=== PATIENT | female | born 2005 | race Caucasian/White ===

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

== ENCOUNTER 2024-07-14 23:34 | Emergency (ER) | payer OTHER, SELFPAY ==
[2024-07-14 23:37] VITALS: BP 113/81; PULSE 103; RESP 20; TEMP 37; O2SAT 99; BMI 16.9
[2024-07-14] MEDS: ALBUTEROL HFA PREPACK 1 BOX MISC (23:55)
[2024-07-14] MEDS: predniSONE 20 MG TABLET PO (23:55)
== END 2024-07-15 00:42 | disposition left against medical advice (07) ==
PROVIDERS: Emergency Provider Emergency Medicine; Family Provider Physician Assistant; PCP Registered Nurse Diabetes Educator
DX: R06.02 Shortness of breath (principal)
CPT/HCPCS: 81025; 99283

== ENCOUNTER → 2025-02-03 12:18 | Outpatient (CLI) | payer OTHER, SELFPAY ==
--- NOTE | 2025-02-03 12:19 | DI.US.S_ITS ---
US breast LT limited: 02/03/2025. BI-RADS: 3 CLINICAL: 20-year old female for left diagnostic breast ultrasound. Tyrer- Cuzick lifetime risk of 26.8%. No personal or first-degree family history of breast cancer. Current reported family history of breast cancer: maternal grandmother and paternal grandmother. The patient reports a palpable abnormality (1 month) and pain (1 month) in the left breast. PRIOR EXAMS No prior examinations available. ULTRASOUND TECHNIQUE Real-time andersen scale and color doppler imaging of the area of clinical interest was performed with image documentation. Left targeted breast ultrasound of the area of clinical interest and the axilla was performed with image documentation. ULTRASOUND FINDINGS Left: Upper Inner at 11:00, 5 cm from nipple, measuring 1.8 x 1.9 x 1.3 cm: Correlating with palpable lump and pain/tenderness there is an oval, circumscribed, hypoechoic mass that is parallel showing posterior acoustic enhancement. This is likely a fibroadenoma. Doppler shows mild internal vascularity. Left: Upper Inner at 10:00, 5 cm from nipple, measuring 1.3 x 0.9 x 0.5 cm: There are clustered microcysts. Doppler shows no vascularity. This is an incidental finding. Left: Upper Outer at 1:00, 5 cm from nipple: There is no sonographic abnormality to account for clinicians' concern of a palpable lump. Left: Axilla: No abnormal lymph nodes are seen in the axilla. IMPRESSION: Left (Mass): Upper Inner at 11:00, 5 cm from nipple, measuring 1.8 x 1.9 x 1.3 cm * Probably Benign. RECOMMENDATIONS Left: Upper Inner at 11:00, 5 cm from nipple * Six month followup with diagnostic ultrasound (The patient may return sooner for imaging if there is development of any clinically suspicious findings in the interim). Left: Upper Outer at 1:00, 5 cm from nipple * Clinical follow-up is recommended, and further management of palpable abnormalities or other focal signs or symptoms should be based on the results of clinical evaluation. If palpable abnormality or other concerning symptom persists or progresses, further clinical evaluation should be considered. COMMENTS: Findings and recommendations were conveyed to the patient during today's evaluation. OVERALL ASSESSMENT CATEGORY BI-RADS-3: Probably Benign. ELECTRONICALLY SIGNED: Leora Callahan M.D. on 02/03/2025 at 05:32:35 PM PT Interpreting Station ID: [id number]
== END ==
LOC: US 12:18
PROVIDERS: PCP Registered Nurse Diabetes Educator; Referring Provider Physician Assistant; Visit Provider Physician Assistant
DX: N63.22 Unspecified lump in the left breast, upper inner quadrant (principal); Z80.3 Family history of malignant neoplasm of breast
CPT/HCPCS: 76642

== ENCOUNTER 2025-02-12 11:34 | Emergency (ER) | payer OTHER, SELFPAY ==
--- OUTSIDE RECORDS SUMMARY | 2025-02-12 11:36 | XMS_ITS | Clinical Summary ---
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 Name Role Phone Selected, No Pcp Primary Care Provider Unavailab Oscar Rivera DMD Unavailable [phone] Allergies No known active allergies Medications No known medications Active Problems No known active problems Family History Medical History Relation Name Comments No Significant Family Hx Father No Significant Family Hx Mother Relation Name Status Comments Father Mother Social History Tobacco Use Types Packs/Day Years Used Date Smoking Tobacco: Never Smokeless Tobacco: Never Alcohol Use Standard Drinks/Week Comments Never 0 (1 standard drink = 0.6 oz pur e alcohol) AUDIT-C Answer Date Recorded Frequency of Alcohol Consumption Never 04/05/2019 Average Number of Drinks Not on file 020 Frequency of Binge Drinking Not on file 03/26 Comments No Sex and Gender Information Value Date Recorded Sex Assigned at Female 02/04/2023 3:02 PM PST Legal Sex Female 5:45 PM PST Gender Identity Female 02/04/2023 3:02 PM PST Sexual Orientation Choose not to disclose 2019 5:58 PM PST Last Filed Vital Signs Vital Sign Reading Time Taken Comments Blood Pressure 116/79 04/05/2019 6:02 PM PST Pulse 97 04/05/2019 6:02 PM PST Temperature 36.9 C (98.5 F) 04/05/2019 6:02 PM PST Respiratory Rate 17 04/05/2019 6:02 PM PST Oxygen Saturation 97% 04/05/2019 6:02 PM PST Inhaled Oxygen Concentration - - Weight 59.8 kg (131 lb 14.4 oz) 04/05/2019 6:02 PM PST Height 165.1 cm (5' 5) 04/05/2019 6:02 PM PST Body Mass Index 21.95 04/05/2019 6:02 PM PST Plan of Treatment Health Maintenance Due Date Last Done Comments DEN: Dental Oral Exam 2004 DEN: Dental Prophylaxis 2004 Depression Screening 2004 SCRN: FOR HIV USPSTF ROUTINE (15-65 YEARS) 01/24/2019 [facility] SCRN: HIV-UNIVERSAL SCRN 01/24/2019 IMM: MENINGOCOCCAL B (1 of 2 - Standard) 2020 SCRN: FOR HEPATITIS C ROUTINE (18-79 Years) 01/24/2022 IMM: INFLUENZA (AGE > 6 MONTHS) (#1) 10/24/2024 02/07/2019, 12/15/2016, 11/15/2012, Additional history exists Pap Smear 01/24/2025 IMM: DTAP/TDAP/TD (7 - Td or Tdap) 06/17/2025 06/18/2015, 01/16/2010, 08/08/2005, Additional history exists IMM: RSV ( patients and Patients AGE > 60 YEARS OLD) (1 - 1-dose 75+ series) 01/24/2079 IMM: HEPATITIS B Completed 01/16/2010, , 2004, Additional history exists IMM: HEPATITIS A Completed 06/18/2015, 03/08/2007 IMM: MENINGOCOCCAL ACWY Aged Out 12/15/2016 No l onger eligible based on patient's age to complete this topic IMM: HPV Completed 08/03/2017, 12/15/2016 IMM: Pneumococcal Combined Aged Out N o longer eligible based on patient's age to complete this topic IMM: RSV (AGE < 20 MONTHS) Aged Out N o longer eligible based on patient's age to complete this topic Insurance [employer] Care Teams Ride Assembly Supervisor Relationship Specialty Start Date End Date Selected, No Pcp PCP - General PCP 02/04/23 Oscar Tolbert, HERMAN [address] [place] [address] Dentist Dentistry 02/04/23
[2025-02-12 12:08] VITALS: BP 109/63; PULSE 82; RESP 16; TEMP 37; O2SAT 98; BMI 17.7
[2025-02-12 13:10] LABS: Culture Indicated Urine Specimen Cultured
--- NOTE | 2025-02-13 08:57 | ED_ITS ---
HPI - Nausea/Vomiting/Diarrhea General Chief complaint: Nausea/Vomiting/Diarrhea Stated complaint: wants test Time Seen by Provider: 02/12/25 11:43 Source: patient Mode of arrival: Ambulatory Related Data Previous Rx's ?Medication ?Instructions ?Recorded fluticasone propionate 110 2 puff inhalation BID #12 g brooks 06/10/22 mcg/actuation HFA aerosol inhaler (Flovent HFA) trazodone 50 mg tablet 75 mg (1.5 x 50 mg) PO BEDTI ME PRN 05/11/23 sleep #180 tabs ondansetron 4 mg disintegrating 4 mg PO Q8H PRN nausea and 06/23/23 tablet vomiting #30 tabs omeprazole 20 mg capsule,delayed 20 mg PO BID #60 caps 07/07/23 release Allergies Allergy/AdvReac Type Severity Reaction Status Date / Time red dye (RED DYE) Allergy Intermediate RASH ON Verified 01/17/25 15:34 SKIN WHEN IN CONTACT lactose (LACTOSE) Allergy Mild SICK TO Verified 01/17/25 15:34 HER STOMACH Patient History Medical History History of suicide attempt Anxiety Mild persistent asthma Tachycardia Graves disease Mild intermittent asthma Major depressive disorder Scoliosis Family History Grandfather Schizophrenia, unspecified type Grandmother Bipolar 1 disorder Social History Smoking Status: Current every day smoker Smoking Status: Current every day smoker tobacco type: e-cigarettes and vaping alcohol intake frequency: holidays/special occasions only Exam Initial Vital Signs Initial Vital Signs: Vital Signs Temperature 98.6 F 02/12/25 12:08 Pulse Rate 82 02/12/25 12:08 Respiratory Rate 16 02/12/25 12:08 Blood Pressure 109/63 02/12/25 12:08 Pulse Oximetry 98 02/12/25 12:08 Oxygen Delivery Method Room Air 02/12/25 12:08 MDM - Nausea/Vomiting/Diarrhea Lab Data Labs: Lab Results 02/12/25 Range/Units 12:15 Urine RBC 0-1/hpf (0-5/HPF) Urine WBC 5-10/hpf H (0-5/HPF) Ur Squamous Epith Cells 0-1 /hpf (0-5/HPF) Urine Bacteria Moderate (10-30) H (None) Urine Mucus 1+ H (Negative) Ur Culture Indicated? Specimen cultured Vol Urine Centrifuged 10ml (spun) Point of Care Testing Test Results Positive Urine Dip Bedside Urine Glucose Negative Bedside Urine Bilirubin - Negative Bedside Urine Ketone + 15 Urine Specific [place] 1.015 Bedside Urine Occult Blood +/- Bedside Urine pH 6.0 Bedside Urine Protein + 30 Bedside Urine Urobilinogen - Negative Bedside Urine Nitrite - Negative Bedside Urine Leukocytes + 70 Esterase Discharge Plan Departure Patient Disposition: Left Without Being Seen Clinical Impression: Patient left without being seen Prescriptions: No Action trazodone 50 mg tablet 75 mg PO BEDTIME PRN (Reason: sleep) Qty: 180 3RF fluticasone propionate [Flovent HFA] 110 mcg/actuation HFA aerosol inhaler 2 puff inhalation BID Qty: 12 5RF Rx Instructions: Rinse mouth/throat after use. omeprazole 20 mg capsule,delayed release(DR/EC) 20 mg PO BID Qty: 60 1RF Rx Instructions: Once symptoms resolved may decrease to once daily ondansetron 4 mg tablet,disintegrating 4 mg PO Q8H PRN (Reason: nausea and vomiting) Qty: 30 1RF
== END 2025-02-12 13:51 | disposition left against medical advice (07) ==
LOC: ED 11:46
PROVIDERS: Emergency Provider Family Medicine; PCP Registered Nurse Diabetes Educator
DX: R11.2 Nausea with vomiting, unspecified (principal)
CPT/HCPCS: 81003; 81015; 81025; 87077; 87086; 99282